=== PATIENT | male | born 1950 | race Caucasian/White ===

== ENCOUNTER 2019-06-29 08:09 | Outpatient (CLI) | payer MEDICARE, SELFPAY ==
--- NOTE | ~2019-06-29 | US_ITS ---
EXAMINATION: US aorta DATE: 06/29/2019 08:50 INDICATION: Abdominal aortic aneurysm screening. Family history of cardiovascular disease. TECHNIQUE: Grayscale, color Doppler, and pulsed Doppler images of the aorta and common iliac arteries were obtained. COMPARISON: Chest CT 06/05/2019 FINDINGS: The aorta is normal in caliber and demonstrates atherosclerosis. The right common iliac artery is nor mal in caliber. The left common iliac artery is normal in caliber. IMPRESSION: 1. Aortic atherosclerosis. No aneurysm. Reviewed, dictated and finalized at location A. [employer]
== END 2019-06-29 08:10 | disposition home or self-care (01) ==
LOC: ANHIMG 08:10
PROVIDERS: PCP Family Medicine; Visit Provider Nurse Practitioner Family
DX: Z13.6 Encounter for screening for cardiovascular disorders (principal); Z82.49 Family history of ischemic heart disease and other diseases of the circulatory system; I70.0 Atherosclerosis of aorta
CPT/HCPCS: 76775

== ENCOUNTER 2020-06-22 09:47 | Emergency (ER) | payer MEDICARE, SELFPAY ==
--- NOTE | 2020-06-22 10:04 | ED.EYEPROB ---
HPI - Eye Problem General Chief complaint: Eye Problems Stated complaint: right eye swelling/redness Time Seen by Provider: 06/22/20 10:04 Source: patient Mode of arrival: ambulatory Limitations: no limitations History of Present Illness HPI Narrative: Selvin Jenkins is a 69 yo male with no PMH who comes to [facility] with right eye irritation and swelling. Right eye is injected and he denies any kind of occupation normal irritation, does not wear contacts or glasses. Started yesterday but woke up this morning with it swollen and irritated Sees his PCP regularly and does not have any comorbid conditions except the patient does abuse tobacco Related Data Allergies Allergy/AdvReac Type Severity Reaction Status Date / Time meperidine [From Demerol] Allergy Mild Sweating Verified 06/22/20 09:56 Review of Systems Review of Systems: Narrative: CONSTITUTIONAL: Denies fever, chills, sweats. EYES: Denies visual changes, right eye redness, has discharge. ENT: Denies rhinorrhea, congestion, sore throat, otalgia. CARDIOVASCULAR: Denies chest pain, palpitations, edema. RESPIRATORY: Denies dyspnea, wheezing, cough GASTROINTESTINAL: Denies abdominal pain, nausea, vomiting, diarrhea. GENITOURINARY: Denies dysuria, hematuria, abnormal discharge SKIN: Denies rash or itching. NEUROLOGIC: Denies numbness, or focal weakness. PSYCHIATRIC: Denies anxiety or depression. PMFSH Past Medical History Medical History (Updated 06/22/20 @ 10:29 by Zayda Olivo CNP) No acute medical problems Family History Family History Other Hypertension Social History Social History (Updated 06/22/20 @ 10:22 by Zayda Olivo CNP) Smoking packs per day: 0.5 Smoking cigarettes per day: 10.0 Smoking status: Current every day smoker Alcohol intake: former Gender identity (if verbalized by the patient): Male Comments At time of signature, I agree with nursing past medical, surgical, social and family history. There is no relevant family history pertinent to the presenting complaint. Patient sees PCP on a regular basis but recommended to follow-up with PCP this week since his blood pressure is elevated at this visit Exam Narrative: Exam Narrative: GENERAL: This is a well-nourished, well-developed patient, in mild distress. HEAD: normocephalic, atraumatic. EYES: PERRL. Sclera clear/white on left; right eye injection, eyelid is mildly edematous, discharge noted. Vision is grossly intact. EARS: External ears normal, clear drainage right nostril. Hearing grossly intact. NOSE: External nose normal without nasal discharge, nares without redness, no rhinorrhea. THROAT: Mucous membranes moist, NECK: Neck supple, non-tender CARDIOVASCULAR: Regular rate and rhythm without murmurs, gallops, or rubs. RESPIRATORY: Diminished to auscultation. Breath sounds equal bilaterally. Mild wheezes, no rales, or rhonchi. GASTROINTESTINAL: Abdomen soft, SKIN: warm, intact with no suspicious lesions or rash, good texture and turgor. NEURO: awake, alert, and oriented to person, place and time. There were no obvious focal neurologic abnormalities. Steady gait EXTREMITIES: Normal range of motion. BACK: Nontender without deformity Course Course Emergency Course: Patient comes to [facility] with right swollen eye with pain started yesterday worsened this morning Started on tobramycin eye drops given directions for use 3 times a day with warm packs and minimum of 3 days Follow-up with PCP Vital Signs Vital signs: Vital Signs Temperature 97.9 F 06/22/20 10:09 Pulse Rate 94 06/22/20 10:09 Respiratory Rate 16 06/22/20 10:09 Blood Pressure 169/69 H 06/22/20 10:09 Pulse Oximetry 97 06/22/20 10:09 Temperature 97.9 F 06/22/20 10:09 Pulse Rate 94 06/22/20 10:09 Respiratory Rate 16 06/22/20 10:09 Blood Pressure 169/69 H 06/22/20 10:09 Pulse Oximetry 97 06/22/20 10:09
[2020-06-22 10:09] VITALS: BP 169/69; PULSE 94; RESP 16; TEMP 36.6; O2SAT 97
== END 2020-06-22 10:32 | disposition home or self-care (01) ==
PROVIDERS: Emergency Provider Nurse Practitioner; PCP Family Medicine
DX: H10.9 Unspecified conjunctivitis (principal); F17.210 Nicotine dependence, cigarettes, uncomplicated
CPT/HCPCS: 99213; G0463